=== PATIENT | female | born 1980 | race Hispanic/Latino ===

== ENCOUNTER 2021-10-18 19:57 | Emergency (ER) | payer OTHER ==
[~2021-10-18] VITALS: Ht 160 cm; Wt 81.6 kg
[2021-10-18 20:46] LABS: APPEARANCE,URINE Clear (CLEAR); BILIRUBIN,URINE Negative (NEGATIVE); COLOR,URINE Yellow (YELLOW); GLUCOSE, URINE (UA) Negative (NEGATIVE); KETONES,URINE Negative (NEGATIVE); LEUKOCYTE ESTERASE ,URINE Trace (NEGATIVE); NITRATE,URINE Negative (NEGATIVE); OCCULT BLOOD,URINE Negative (NEGATIVE); PROTEIN,URINE Trace mg/dL (NEGATIVE); UROBILINOGEN,URINE 0.2 mg/dL (0.2-1.0)
[2021-10-18 20:51] LABS: HCG,QUAL RESULT NEGATIVE (NEGATIVE)
[2021-10-18 20:51] LABS: BASOPHILS % (AUTO) 0.7 % (0.0-5.0); EOSINOPHILS % (AUTO) 0.5 % (0.0-8.0); HEMATOCRIT 39.9 % (36-48); LYMPHOCYTES % (AUTO) 15.6 % (21.0-51.0); MEAN CORPUSCULAR HEMOGLOBIN 30.1 pg (27.0-33.0); MEAN CORPUSCULAR HGB CONC 33.1 g/dL (32.0-36.0); MEAN CORPUSCULAR VOLUME 90.9 fL (79-99); PLATELET COUNT (AUTO) 404 K/uL (130-400); RED BLOOD CELL COUNT(AUTO) 4.39 MIL/uL (4.00-5.50); RED CELL DISTRIBUTION WIDTH 12.3 % (11.0-15.5); WHITE BLOOD COUNT (AUTO) 11.6 K/uL (4.8-10.8)
[2021-10-18 20:58] LABS: BACTERIA,URINE Few /HPF (None Seen); RBC,URINE None Seen /HPF (0-1); SQUAMOUS EPITHELIAL CELL,UR 0-2 /HPF (0-2)
[2021-10-18] MEDS ORDERED: ACETAMINOPHEN 500 MG TABLET ONE (20:59)
[2021-10-18] MEDS ORDERED: NIFEDIPINE 10 MG CAP ONE (21:00)
[2021-10-18 21:07] LABS: CREATININE 0.7 mg/dL (0.5-1.5); POTASSIUM 3.6 mmol/L (3.5-5.1)
[2021-10-18 21:16] LABS: ALBUMIN 3.6 g/dL (3.5-5.0); BILIRUBIN,TOTAL 0.3 mg/dL (0.2-1.0); CRP QUANTITATIVE 10.4 mg/L (0.00-9.0); TOTAL PROTEIN, SERUM 7.8 g/dL (6.0-8.3)
[2021-10-18 21:19] LABS: B-TYPE NATRIURETIC PEPTIDE 26 pg/mL (0-100)
[2021-10-18] MEDS ORDERED: HYDR-3421 PO (21:46)
[2021-10-18] MEDS ORDERED: ACETAMINOPHEN 500 MG TABLET PO ONE (22:00)
[2021-10-18] MEDS ORDERED: LORAZEPAM 2 MG/ML 1 ML VIAL IVP ONE (22:00)
[2021-10-18] MEDS ORDERED: NIFEDIPINE 10 MG CAP PO SCH (22:00)
[2021-10-18 22:04] VITALS: BP 129/81
== END 2021-10-18 22:19 | disposition home or self-care (01) ==
LOC: EDH 19:57
DX: I10 Essential (primary) hypertension (principal); F41.9 Anxiety disorder, unspecified; F43.0 Acute stress reaction; E66.9 Obesity, unspecified; Z90.49 Acquired absence of other specified parts of digestive tract; Z90.710 Acquired absence of both cervix and uterus; Z68.31 Body mass index [BMI] 31.0-31.9, adult
CPT/HCPCS: 36415; 71045; 80053; 81001; 81025; 83880; 84484; 85025; 86140; 93005; 96374; 99285; J2060